=== PATIENT | female | born 1950 | race Caucasian/White ===

== ENCOUNTER → 2017-02-17 13:06 | Outpatient (CLI) | payer MEDICARE, MEDICAID ==
[2015-02-06 10:49] VITALS: BMI 45.1
[~2017-02-17 13:06] MED LIST: BAYER CHEWABLE81 MG PO; CARAFATE1 G PO; CROMOLYN SOD40 MG/ML NS; DYRENIUM50 MG PO; FLOVENT HFA 11012 GM INH; HYDROCODONE-APA1 TAB PO; K-TAB10 MEQ PO; KEFLEX250 MG PO; NASACORT AQ16.5 GM NASAL; PARAFON FORTE500 MG PO; PEPCID40 MG PO; SINGULAIR10 MG PO; TIROSINT88 MCG PO; VALIUM5 MG PO; VENTOLIN HFA18 GM INH
== END | disposition home or self-care (01) ==
LOC: D.RAD 13:06
DX: M54.5 Low back pain (principal); R10.9 Unspecified abdominal pain

== ENCOUNTER → 2017-03-18 15:11 | Outpatient (CLI) | payer MEDICARE, MEDICAID ==
[2015-02-06 10:49] VITALS: BMI 45.1
== END | disposition home or self-care (01) ==
LOC: D.CT 15:11
DX: M41.9 Scoliosis, unspecified (principal)

== ENCOUNTER 2018-02-13 17:38 | Observation (INO) | payer MEDICARE, MEDICAID ==
[~2018-02-13] VITALS: Ht 172.7 cm; Wt 136.1 kg
--- NOTE | ~2018-02-13 | HEMODYNAMI ---
PATIENT:NOEL MAHONEY MEDICAL RECORD: [id number] : 52 LOCATION:[facility] D.2123 [facility]# [id number] ADMISSION DATE: 02/13/18 Generatedon:02/14/201812:38 Patient name: NOEL MAHONEY Patient #: [id number] SSN: : 1950 Date of study: 02/14/2018 Page: Of Hemodynamic Procedure Report Patient Data Patient Demographics Procedure consent was obtained First Name: NOEL Gender: Female Last Name: MARU : 1950 [facility] Initial: J Age: 68 year(s) Patient #: [id number] Race: Unknown Additional ID: [id number] Contact details Address: [address] [place] [address] [facility] State: [place] City: [place] Zip code: [address] Past Medical History Allergies Allergen Reaction Date Comments Reported Sulfa drugs 02/14/2018 Adhesive tape 02/14/2018 Other allergy 02/14/2018 celebrex, crestor dexilant, tamiflu Admission Admission Data Admission Date: 02/13/2018 Admission Time: 17:38 Room #: D.2123 Lab Results Lab Result Date: 02/14/2018 Lab Result Time: 0:00 Biochemistry Name Units Result Min Max BUN mg/dl 16 --(---*)-- 7 18 Creatinine mg/dl 1 --(--*-)-- 0.6 1.3 CBC Name Units Result Min Max Hemoglobin g/dl 13.2 -*(----)-- 13.5 17.5 Procedure Procedure Types Cath Procedure Diagnostic Procedure LHC LHC w/Coronaries Procedure Description Procedure Date Procedure Date: 02/14/2018 Procedure Start Time: 12:29 Procedure End Time: 12:37 Procedure Staff Name Function Ilia Hanson MD Performing Physician Trish Nix RT Monitor Yuliet Nugent RT Scrub Mark Preciado RN Nurse Procedure Data Cath Procedure Fluoroscopy Diagnostic fluoroscopy Total fluoroscopy Time: 1.2 time: 1.2 min min Diagnostic fluoroscopy Total fluoroscopy dose: 531 dose: 531 mGy mGy Contrast Material Contrast Material Type Amount (ml) Isovue 300 36 Entry Location Entry Primary Successful Side Size Upsize Upsize Entry Closure Ramon ccessful Closure Location (Fr) 1 (Fr) 2 (Fr) Remarks Device Remarks Radial Right 6 Fr Mechanical artery Short Compression Estimated blood loss: 5 ml Diagnostic catheters Device Type Used For End Catheter Placement DIAGNOSTIC Benton 110cm 5 LV Angiography Fr catheter ([id number]) DIAGNOSTIC Benton 110cm 5 Left Coronary Fr catheter ([id number]) Angiography DIAGNOSTIC Benton 110cm 5 Right Coronary Fr catheter ([id number]) Angiography Procedure Complications No complications Procedure Medications Medication Administration Route Dosage 0.9% NaCl I.V. 100 ml/hr Oxygen etCO2 Nasal cannula 2 l/min Heparin Flush Bag added to field 2 bags (1000units/500ml NS) Lidocaine 2% added to field 20 Radial Cocktail added to field 1 syringe (Verapomil 2mg/Nitro 400mcg/Heparin 1500units) Versed I.V. 2 mg Fentanyl I.V. 50 mcg Fentanyl I.V. 50 mcg Radial Cocktail I.A. 1 syringe (Verapomil 2mg/Nitro 400mcg/Heparin 1500units) Versed I.V. 0.5 mg Hemodynamics Rest HGB: 13.2 (g/dl) Heart Rate: 66 (bpm) Snapshots Pre Cath Intra NCS Post Cath Vital Signs Time Heart Resp SPO2 etCO2 NIBP (mmHg) Rhythm Pain Sedation Rate (ipm) (%) (mmHg) Status Level (bpm) 12:05:21 62 13 93 35.9 137/72(107) Paced 0 (11) 10(A) , No pain 12:10:07 65 16 92 35.8 134/75(98) Paced 0 (11) 10(A) , No pain 12:14:56 69 16 93 36.6 140/72(94) Paced 0 (11) 10(A) , No pain 12:19:45 67 15 92 40.3 137/71(102) Paced 0 (11) 10(A) , No pain 12:24:32 62 15 94 39.6 135/75(100) Paced 0 (11) 10(A) , No pain 12:29:16 60 14 94 14.9 125/72(101) Paced 0 (11) 10(A) , No pain 12:34:01 69 14 92 36.6 105/54(77) Paced 0 (11) 10(A) , No pain Medications Time Medication Route Dose Verified Delivered Reason Notes Effectiveness by by 12:06:37 0.9% NaCl I.V. 100 Mark Mark Per ml/hr Ozzy Preciado physician RN RN 12:06:50 Oxygen etCO2 2 l/min Mark Mark Per Nasal Ozzy Preciado physician cannula RN RN 12:07:02 Heparin Flush added 2 bags Mark Mark used for Bag to Lorigan Ozzy procedure (1000units/500ml field RN RN NS) 12:07:13 Lidocaine 2% added 20ml Mark Mark for local to vial Lorigan Chikaigan anesthetic field RN RN 12:07:25 Radial Cocktail added 1 Mark Mark used for (Verapomil to syringe Lorigan Cihkaigan procedure 2mg/Nitro field RN RN 400mcg/Heparin 1500units) 12:23:25 Versed I.V. 2 mg Mark Mark for sedation Ozzy Preciado RN RN 12:23:34 Fentanyl I.V. 50 mcg Mark Mark for sedation Ozzy Preciado RN RN 12:29:40 Fentanyl I.V. 50 mcg Mark Mark for sedation Ozzy Preciado RN RN 12:30:18 Radial Cocktail I.A. 1 Mark Ilia for (Verapomil syringe Ozzy Hanson MD vasodilation 2mg/Nitro RN 400mcg/Heparin 1500units) 12:32:23 Versed I.V. 0.5 mg Mark Mark for sedation Ozzy Preciado RN elevator mechanic Log Time Note 11:36:39 Time tracking: Regular hours (M-F 7:00 - 5:00) 11:36:43 Plan of Care:Hemodynamics will remain stable., Cardiac rhythm will remain stable., Comfort level will be maintained., Respiratory function will remain adequate., Patient/ family verbilizes understanding of procedure., Procedure tolerated without complication., Recovers from procedure without complications.. 11:36:47 Signed procedure consent form obtained from patient. 11:37:30 Lab Result : Creatinine 1 mg/dl 11:37:30 Lab Result : BUN 16 mg/dl 11:37:30 Lab Result : Hemoglobin 13.2 g/dl 11:41:09 Trish Counts RT(R) sent for patient. Start room use. 11:55:11 Patient received from PCU to CCL 1 Alert and oriented. Tansferred to table in Supine position. 12:04:20 Warm blankets applied, and mandy hugger turned on for patient comfort. 12:04:21 Correct patient and procedure confirmed by team. 12:04:22 ECG and BP/O2 sat monitors applied to patient. 12:04:23 Vital chart was started 12:04:24 Full Disclosure recording started 12:06:04 Rhythm: sinus rhythm 12:06:37 0.9% NaCl 100 ml/hr I.V. was administered by Mark Preciado RN; Per physician; 12:06:48 H&P Date Dictated: 02/14/2018 Within 30 days and on chart.. 12:06:50 Oxygen 2 l/min etCO2 Nasal cannula was administered by Mark Preciado RN; Per physician; 12:06:50 Pre-procedure instructions explained to patient. 12:06:50 Pre-op teaching completed and patient verbalized understanding. 12:06:52 Family in patients room. 12:06:56 Patient NPO since Midnight. 12:07:02 Heparin Flush Bag (1000units/500ml NS) 2 bags added to field was administered by Mark Preciado RN; used for procedure; 12:07:13 Lidocaine 2% 20ml vial added to field was administered by Mark Preciado RN; for local anesthetic; 12:07:25 Radial Cocktail (Verapomil 2mg/Nitro 400mcg/Heparin 1500units) 1 syringe added to field was administered by Mark Preciado RN; used for procedure; 12:10:12 Patient allergic to Sulfa drugs 12:10:19 Patient allergic to Adhesive tape 12:10:54 Patient allergic to Other allergycelebrex, crestor dexilant, tamiflu 12:10:59 Is the patient allergic to Iodine/contrast media? No. 12:11:00 Is patient on blood thinner?No 12:11:02 Patient diabetic? No. 12:11:07 Previous problem with sedation/anesthesia? No ? 12:11:08 Snore? Yes 12:11:09 Sleep apnea? No 12:11:10 Deviated septum? No 12:11:10 Opens mouth fully? Yes 12:11:11 Sticks out tongue? Yes 12:11:14 Airway obstruction? No ? 12:11:16 Dentures? No ? 12:11:19 Pre procedure: right dorsailis pedis pulse 2+ Normal; easily identifiable; not easily obliterated 12:11:22 Modified Parmjit's test Ulnar < 7 seconds 12:11:24 Patient pain scale 0/10 ?. 12:11:31 IV patent on arrival in right forearm with 0.9% NaCl at [facility]. 12:11:33 Lab results completed and on chart. 12:11:35 Right Radial & Right Groin area was prepped with chlora-prep and draped in sterile fashion 12:11:36 Alarms reviewed by R. N. 12:11:37 Sharps counted by scrub and verified by R.N. 12:11:39 Use device set Radial Dx or PCI 12:11:40 ACIST Syringe (55816) opened to sterile field. 12:11:41 Medline Cath Pack ([id number]) opened to sterile field. 12:11:41 Bag Decanter (2002S) opened to sterile field. 12:11:42 DIAGNOSTIC WIRE .035 260cm J wire (929329) opened to sterile field. 12:11:42 ACIST Hand Control (92278) opened to sterile field. 12:11:43 ACIST Manifold (03937) opened to sterile field. 12:11:43 Tegaderm 4 x 4 (1626W) opened to sterile field. 12:11:45 MBrace Wrist Support ([id number]) opened to sterile field. 12:11:53 SHEATH 6Fr Prelude Radial ([id number]) opened to sterile field. 12:16:42 Baseline sample Acquired. 12:16:44 Zero performed for pressure channel P1 12:20:50 Final Timeout: patient, procedure, and site verified with staff and physician. All members of the team are in agreement. 12:20:59 Right Radial site verified by team. 12:21:04 Physical assessment completed. ASA score P 2 - A patient with mild systemic disease as per Ilia Hanson MD. 12:21:09 Sedation plan: IV Moderate Sedation Medication:Versed, Fentanyl 12:23:25 Versed 2 mg I.V. was administered by Mark Preciado RN; for sedation; 12:23:34 Fentanyl 50 mcg I.V. was administered by Mark Preciado RN; for sedation; ::34 Procedure started. 12::38 Local anesthetic to right femoral artery with Lidocaine 2% by Ilia Hanson MD.INITIAL ACCESS ONLY 12::40 Fentanyl 50 mcg I.V. was administered by Mark Preciado RN; for sedation; 12::52 A 6 Fr Short sheath was inserted into the Right Radial artery 12::18 Radial Cocktail (Verapomil 2mg/Nitro 400mcg/Heparin 1500units) 1 syringe I.A. was administered by Ilia Hanson MD; for vasodilation; 12::30 A DIAGNOSTIC Benton 110cm 5 Fr catheter ([id number]) was advanced over the wire and used for LV Angiography. 12:32: LV gram done using MCKAY 12::04 Injector settings: Ml/sec: 5, Volume: 15, 12:32:10 EF : 60 % 12:: Versed 0.5 mg I.V. was administered by Mark Preciado RN; for sedation; :: A DIAGNOSTIC Benton 110cm 5 Fr catheter ([id number]) was advanced over the wire and used for Left Coronary Angiography. 12:33:29 A DIAGNOSTIC Benton 110cm 5 Fr catheter (118707) was advanced over the wire and used for Right Coronary Angiography. 12:33:34 Catheter removed. 12:33:51 Sheath removed intact; hemostasis achieved with Mechanical Compression to the Right Radial artery. 12:33:54 Procedure ended.(Physican Out) 12:34:05 Fluoroscopy time 01.20 minutes. 12::09 Fluoroscopy dose: 531 mGy 12:34: Flurop Dose total: 531 12:34:12 Contrast amount:Isovue 300 36ml. 12:34:13 Sharps counted by scrub and verified by R.N. 12:34:16 TR band inflated with 12cc of air. 12:34:17 Insertion/operative site no bleeding no hematoma. 12:34:23 Post right radial artery:stable, clean and dry 12:34:25 Post Procedure Pulses reassessed and unchanged 12:: Post-procedure physical assessment completed. ASA score P 2 - A patient with mild systemic disease as per Ilia Hanson MD. 12:34:29 Post procedure rhythm: unchanged. 12:34:31 Estimated blood loss: 5 ml 12:34:33 Post procedure instruction explained to patient.Patient verbalizes understanding. 12:34:33 Patient needs reinforcement of post procedure teaching. 12:34:39 Procedure Complication : No complications 12:34:42 See physician's report for complete and final results. 12:34:45 TR BAND Standard ([id number]) opened to sterile field. 12:35:18 Procedure and supply charges have been captured, reviewed, submitted and are correct. 12:36:41 Vital chart was stopped 12:36:43 Report given to PCU. 12:36:50 Patient transfered to PCU with Bed. 12:37:03 Procedure ended. 12:37:03 Full Disclosure recording stopped 12:37:06 End room use (Document Last) Device Usage Item Name Manufacture Quantity Catalog Number Hospital Part Current M inimal Lot# / Charge Number Stock Stock Serial# Code ACIST Syringe Acist 1 85213 501994 [id number] 342128 2 0 (84133) Medical Systems Inc Medline Cath Cardinal 1 [id number] 04468 128021 5 [place]om[place] ([id number]) Bag Decanter Microtek 1 2001S 999101 88289 336173 5 (2001S) Medical Inc. DIAGNOSTIC WIRE St Marcio 1 860504 756329 875891 321941 3 0 .035 260cm J wire (054691) ACIST Hand Acist 1 58259 695640 044012 565740 5 Control (00491) Medical Systems Inc ACIST Manifold Acist 1 87350 281403 394374 788717 5 (29719) Medical Systems Inc Tegaderm 4 x 4 3M 1 1626W 115749 238791 985374 5 (1626W) MBrace Wrist Advanced 1 140-0250-00 760350 20624 169781 5 Support Vascular ([id number]) Dynamics SHEATH 6Fr Merit 1 [id number] 743937 757025 883708 5 Prelude Radial Medical ([id number]) DIAGNOSTIC Terumo 1 40-1165 624294 478999 488810 5 Benton 110cm 5 Fr catheter (588509) TR BAND Terumo 1 [id number] 797929 575603 770344 4 0 Standard ([id number]) Signature Audit [place] Stage Time Signature Unsigned Intra-Procedure 02/14/2018 Trish 12:38:40 PM Counts RT(R) Signatures Monitor : Trish Signature : Counts RT Date : Time : [address] [place] [address]
--- NOTE | ~2018-02-13 | OP ---
PATIENT NAME: NOEL MAHONEY MEDICAL RECORD: [id number] :52 LOCATION:D.M2 D.2123 ADMISSION DATE:02/13/18 SURGEON: KEENA VASQUEZ MD DATE OF OPERATION: 02/14/2018 PROCEDURES: 1. Left heart catheterization. 2. Selective coronary angiography. 3. Left ventriculogram. PROCEDURE IN DETAIL: After informed consent was obtained and after detailed explanation of risks, benefits as well as alternative therapies, the patient elected to proceed with angiogram and heart catheterization. The right radial area was prepped and draped in normal sterile fashion. Right radial artery was cannulated via modified technique with placement of 5-Mohawk sheath. All catheters exchanged through this sheath. FINDINGS: Left ventriculogram was performed in standard 30-degree MCKAY view, reveals good cardiac wall motion throughout all segments. Overall ejection fraction estimated 60%. SELECTIVE CORONARY ANGIOGRAPHY: Left main, left anterior descending, left circumflex, right coronary artery are all smooth-walled vessels with no angiographic evidence of coronary artery disease. OVERALL IMPRESSION: 1. No angiographic evidence of coronary artery disease. 2. Normal left heart pressures. 3. Normal left ventricular systolic function. Chest pain is noncardiac in etiology. No further cardiac workup needs to be ascertained. TRANSINT:[id number] Voice Confirmation ID: [id number] DOCUMENT ID: [id number] KEENA VASQUEZ MD at 0956 CC: IRA JULIAN [id number] DICTATION DATE: 02/14/18 1237 [place] [employer]ER: 02/14/18 1458 DIS IN 02/15/18 [place] [address] [place] [address]
--- NOTE | ~2018-02-13 | HP ---
PATIENT: NOEL MAHONEY MEDICAL RECORD: [id number] ACCOUNT: [id number] LOCATION:[address] : 52 ADMISSION DATE: 02/13/18 HISTORY AND PHYSICAL EXAMINATION REASON FOR ADMISSION: Cough, fever and substernal chest pain. HISTORY OF PRESENT ILLNESS: The patient is a 68-year-old female with previous history of sick sinus syndrome, post pacemaker placement in 2014 with paroxysmal atrial fibrillation. She had seen Dr. Kim in cardiology in his office last week with pacer showing 25% of battery life consumed and no evidence of recent atrial fibrillation. The patient states that she has significant episode of reflux 2 nights ago and then began to cough fairly bad last night, she thinks she had fever, but did not check it. Cough has been throughout the day today, she began having substernal chest pain that was squeezing, not related to deep breathing. It has been consistent throughout the day, did not radiate. She said she "felt disjointed." She came to the office and appeared ill. Initial exam showed a sat 97% on room air and faint wheezes on chest exam. Chest x-ray did not show an infiltrate; however, due to her chest pain, an EKG was obtained. It showed new changes from her EKG in 2014 prior to pacemaker placement that may be pacer related with wide QRS throughout all leads and question of anterior PA. Because of the patient's symptoms and no improvement on updrafts, she is admitted to observation for serial enzymes and further workup. PAST MEDICAL HISTORY: Carpal tunnel syndrome, depression, dyslipidemia, essential hypertension, history of cholecystitis post-cholecystectomy, GERD, obesity, hypothyroidism, lumbar disc disease, cervical disc disease, menopause, morbid obesity, history of rotator cuff tear, stomach ulcers, history of asthma, osteoarthritis, urinary incontinence, history of Mobitz II heart block post pacemaker placement in 2015 after foot surgery. PAST SURGICAL HISTORY: Cholecystectomy laparoscopically, hysterectomy for uterine cancer, oophorectomy, bilateral knee arthroscopy, right plantar fasciotomy in 03/14, right shoulder repair. She had a panniculectomy and umbilical hernia repair at [facility] on 08/23/2017 without complication. Pacemaker placement, ganglion cyst, carpal tunnel release, colon polyps removed by colonoscopy in 2006, history of negative cardiac catheterization in 04/12, negative stress test in 03/14. ALLERGIES: CELEBREX, CRESTOR, DEXILANT, PRAVASTATIN. FAMILY HISTORY: Father at 78 of PA, had hypertension and diabetes. Mother at 88. She had Parkinson's and dementia. SOCIAL HISTORY: Nonsmoker, remote heavy drinker. She is . HOME MEDICATIONS: Flovent 110 mcg 1 puff b.i.d., Maxalt 10 mg with evening meal, aspirin 81 mg daily, chlorzoxazone 500 mg p.o. at bedtime, diazepam 5 mg p.o. p.r.n. anxiety, famotidine 40 mg at bedtime, gabapentin 300 mg 1 cap at bedtime, Krill oil 1200 mg p.o. at night, Livalo 2 mg with evening meal, Synthroid 0.088 mg p.o. 30 minutes a.c. breakfast, Dyazide 1 q.a.m., tramadol 50 mg q.6 hours p.r.n. low back pain, potassium 99 mg p.o. daily, vitamin E 200 units p.o. daily, omega 3 fish oil 1 daily, flaxseed oil 1000 mg capsule daily, vitamin D 1000 units p.o. daily, Biotin 5000 mg p.o. daily, oxycodone 10 mg q.6 HISTORY AND PHYSICAL [id number] NOEL MAHONEY for severe pain not used since 2017. OTHER ALLERGIES: POISON LOUISE EXTRACT, PREVNAR 13, HOUSE DUST MITE AND RAGWEED POLLEN. REVIEW OF SYSTEMS: GENERAL: She felt pretty well until yesterday. She has not been very fatigued and disjointed today. She had fever last night, she states. RESPIRATORY: She has had cough productive of white sputum and substernal chest pain that was squeezing for the last 12 hours. Mild shortness of breath on exertion. CARDIAC: Chest pain as mentioned above. No recent exertional pain or edema. GASTROINTESTINAL: No nausea, vomiting, change in stools or blood per rectum. GENITOURINARY: No incontinence. GYNECOLOGIC: No vaginal bleeding. ENDOCRINE: Denies polyuria, polydipsia and heat or cold intolerance. NEUROLOGIC: No history of stroke or TIA. No recent vascular headaches. PSYCHIATRIC: Admits to chronically depressed mood, but not suicidal. INTEGUMENT: No recent rash. PHYSICAL EXAMINATION: VITAL SIGNS: On exam, weight is 301 pounds, blood pressure 130/80, heart rate is 70 and regular, respirations are 18, sats 97% on room air. Height is 5 feet, BMI 58.9. GENERAL: The patient appears ill. HEENT: Normocephalic. Eyes are clear. Pharynx is unremarkable. NECK: Supple. CHEST: Distant breath sounds with faint wheezes in the upper lobes. No rales or retractions. Chest wall is nontender. HEART: Regular rate and rhythm. She has healed left upper chest pacemaker site noted, well healed. ABDOMEN: Morbidly obese with healed panniculectomy scar. EXTREMITIES: 2+ mild pedal and pretibial edema of the knees bilaterally. NEUROLOGIC: Oriented to person, place, and time. Cranial nerves are intact. Gait is normal. LABORATORY DATA: Her EKG is abnormal post-pacemaker placement with wide QRS throughout all leads, question of anterior PA. No old EKG to compare. Compared to her pre pacemaker placement EKG, this was grossly abnormal. Labs are currently pending. Chest x-ray in the office is unremarkable except for pacemaker in the left upper chest. The patient was given a pulmonary updraft without improvement in symptoms. The patient was given aspirin 325 mg p.o. stat. ASSESSMENT: 1. Atypical substernal chest pain. History of negative cardiac catheterization in 2012, negative stress test in 2014, history of sick sinus syndrome post pacemaker placement. 2. History of subjective febrile illness with cough, possible aspiration pneumonitis. 3. Obesity. 4. Hyperlipidemia. 5. Hypertension. PLAN: The patient will be admitted to the cardiac floor on cardiac monitoring. HISTORY AND PHYSICAL [id number] NOEL MAHONEY We will check stat cardiac enzymes if elevated then cardiology consult will be obtained. Otherwise, treat with IV Levaquin updrafts. Further workup pending clinical course. TRANSINT:[id number] Voice Confirmation ID: [id number] DOCUMENT ID: [id number] IRA JULIAN MD at 0937 CC: [id number] DICTATION DATE: 02/13/181735 [place] P[facility]ER: 02/13/18 1847 DIS IN 02/15/18 [facility] [address] [place] [address]
[2018-02-13 19:00] VITALS: BP 164/79
[2018-02-13 23:58] LABS: HEMATOCRIT 39.4 % (36.0-48.0); HEMOGLOBIN 13.5 g/dL (12-16); LYMPHOCYTES 48.6 % (15-50); MCH 32.4 pg (26.0-34.0); MCHC 34.3 g/dL (31.0-37.0); MCV 94.5 fL (80.0-100.0); MEAN PLATELET VOLUME 9.3 fL (7.4-10.4); NEUTROPHILS 38.3 % (40-80); PLATELET COUNT 178 10x3/uL (130-400); RBC 4.17 10x6/uL (4.00-5.40); RDW 13.4 % (11.5-14.5); WBC 3.6 10x3/uL (4.8-10.8)
[2018-02-14] VITALS (7 sets, daily range): BP systolic 126–164; BP diastolic 62–79; Ht 172.7 cm; Wt 136.1 kg
[2018-02-14 00:31] LABS: CALC OSMOLALITY 282 mosm/kg (275-300); CALCIUM 8.7 mg/dL (8.5-10.1); CHLORIDE - SERUM 103 mmol/L (98-107); CKMB 0.5 U/L (0.0-3.6); CREATINE KINASE 81 UL (21-215); GLUCOSE 120 mg/dL (74-106); POTASSIUM - SERUM 3.3 mmol/L (3.5-5.1); SODIUM 141 mmol/L (136-145); TROPONIN-I < 0.017 ng/mL (0.000-0.060); UREA NITROGEN 14 mg/dL (7-18); eGFR NON AFRICAN AMERICAN 58 mL/min (90-120)
[2018-02-14 05:18] LABS: BASOPHILS 0.3 % (0-2); EOSINOPHILS 2.4 % (0-7); HEMATOCRIT 39.3 % (36.0-48.0); HEMOGLOBIN 13.2 g/dL (12-16); IMMATURE GRANULOCYTES 0.3 % (0-5); LYMPHOCYTES 40.1 % (15-50); MCH 32.6 pg (26.0-34.0); MCHC 33.6 g/dL (31.0-37.0); MEAN PLATELET VOLUME 9.9 fL (7.4-10.4); MONOCYTES 13.6 % (2-11); NEUTROPHILS 43.3 % (40-80); PLATELET COUNT 178 10x3/uL (130-400); RBC 4.05 10x6/uL (4.00-5.40); RDW 13.6 % (11.5-14.5); WBC 3.7 10x3/uL (4.8-10.8)
[2018-02-14 05:54] LABS: CALC OSMOLALITY 278 mosm/kg (275-300); CALCIUM 8.8 mg/dL (8.5-10.1); CARBON DIOXIDE 24.8 mmol/L (21.0-32.0); CHLORIDE - SERUM 105 mmol/L (98-107); CKMB 0.8 U/L (0.0-3.6); CREATINE KINASE 91 UL (21-215); GLUCOSE 104 mg/dL (74-106); POTASSIUM - SERUM 3.5 mmol/L (3.5-5.1); SODIUM 139 mmol/L (136-145); TROPONIN-I < 0.017 ng/mL (0.000-0.060); UREA NITROGEN 16 mg/dL (7-18); eGFR NON AFRICAN AMERICAN 58 mL/min (90-120)
[2018-02-15] VITALS: BP 134/69
[2018-02-15 01:56] LABS: APPEARANCE CLEAR (CLEAR); BILIRUBIN NEGATIVE (NEGATIVE); COLOR YELLOW (YELLOW); GLUCOSE NEGATIVE (NEGATIVE); KETONE NEGATIVE (NEGATIVE); NITRITE NEGATIVE (NEGATIVE); PROTEIN NEGATIVE (NEGATIVE); SPECIFIC GRAVITY 1.015 (1.005-1.020); UROBILINOGEN NORMAL (NORMAL)
[2018-02-15 01:57] LABS: BACTERIA FEW /hpf (NONE SEEN); EPITHELIAL CELLS 0-5 /hpf (0-5); RED CELLS - URINE NONE SEEN /hpf (0-5); WHITE CELLS - URINE 0-5 /hpf (0-5); YEAST <1+ /hpf (NONE SEEN)
[2018-02-15 04:00] VITALS: BP 126/59
[2018-02-15] MEDS ORDERED: LEVAQUIN500 MG PO (07:14)
[2018-02-15] MEDS ORDERED: MEDROL DOSE PACK4 MG PO (07:15)
[2018-02-15] MEDS ORDERED: MUCINEX600 MG PO (07:15)
[2018-02-15 08:29] VITALS: BP 140/68
== END 2018-02-15 12:24 | disposition home or self-care (01) ==
LOC: D.M2 17:38 → D.SDCHOLD 17:38 → OBSVTIME 17:39 → D.M2 19:08 → D.SDCHOLD 02-14 15:15 → D.M2 02-14 15:15
PROVIDERS: Family Medicine
DX: J45.901 Unspecified asthma with (acute) exacerbation (principal); Z87.891 Personal history of nicotine dependence; F32.9 Major depressive disorder, single episode, unspecified; E78.5 Hyperlipidemia, unspecified; I10 Essential (primary) hypertension; K21.9 Gastro-esophageal reflux disease without esophagitis; E66.01 Morbid (severe) obesity due to excess calories; Z68.43 Body mass index [BMI] 50.0-59.9, adult; Z95.0 Presence of cardiac pacemaker; E87.6 Hypokalemia

== ENCOUNTER → 2018-04-17 16:57 | Outpatient (CLI) | payer MEDICARE, MEDICAID ==
[2018-02-14 13:15] VITALS: BMI 45.6
[~2018-04-17 16:57] MED LIST changes: +LEVAQUIN500 MG PO; +MEDROL DOSE PACK4 MG PO; +MUCINEX600 MG PO
== END | disposition home or self-care (01) ==
LOC: D.RAD 16:57
DX: M25.552 Pain in left hip (principal); M70.72 Other bursitis of hip, left hip; Y93.9 Activity, unspecified

== ENCOUNTER 2019-04-16 09:38 | Day surgery (SDC) | payer MEDICARE, MEDICAID ==
[~2019-04-16] VITALS: Ht 172.7 cm; Wt 136.4 kg
[2019-04-16 10:04] LABS: HEMATOCRIT 39.6 % (36.0-48.0); HEMOGLOBIN 13.4 g/dL (12-16); MCH 32.9 pg (26.0-34.0); MCHC 33.8 g/dL (31.0-37.0); MCV 97.3 fL (80.0-100.0); MEAN PLATELET VOLUME 9.6 fL (7.4-10.4); RBC 4.07 10x6/uL (4.00-5.40); RDW 13.8 % (11.5-14.5); WBC 4.4 10x3/uL (4.8-10.8)
[2019-04-16] MEDS ORDERED: LASIX (10:27)
[2019-04-16] MEDS ORDERED: BLOOD PRESSURE (10:28)
[2019-04-16] MEDS ORDERED: LIVALO2 MG PO (10:30)
[2019-04-16 10:45] VITALS: BP 142/70; Ht 172.7 cm; Wt 136.4 kg
--- NOTE | 2019-04-16 14:05 | NUR ---
1335 IV DC'D. CATHETER INTACT. PRESSURE HELD UNTIL BLEEDING STOPPED. BANDAID APPLIED.
--- NOTE | 2019-04-17 18:01 | OP ---
PATIENT NAME: NOEL MAHONEY MEDICAL RECORD: [id number] :52 LOCATION:[facility] ADMISSION DATE: SURGEON: RODNEY SALES DO DATE OF OPERATION: 04/16/2019 PROCEDURE: EGD with biopsies. INDICATIONS FOR PROCEDURE: Heartburn. SCOPE: Olympus video gastroscope. MEDICATIONS: Propofol 350 mg IV per anesthesia. ESTIMATED BLOOD LOSS: Minimal. COMPLICATIONS: None. FINDINGS: Informed consent was given. The patient was made comfortable with the above medication. After reaching an adequate level of sedation by slow IV push, the patient was placed on her left side. The endoscope was advanced under direct visualization through the mouth to the second portion of the duodenum. The entire esophagus appeared normal. At the GE junction, there was evidence of LA class A reflux-induced esophagitis. The endoscope was advanced beyond the GE junction into the stomach and retroflexed to view the cardia, where a small sliding hiatal hernia was present. Throughout the entire stomach, there were areas of erythema and granularity and some erosions present, but no ulcerations or evidence of bleeding. Random cold forceps biopsies were taken to submit for histopathology and to rule out the presence of H. pylori. The endoscope was advanced beyond the pylorus into the duodenum, which appeared normal down to the second portion. The endoscope was then withdrawn from the patient. The patient tolerated the procedure well and there were no complications. IMPRESSION: 1. LA class A reflux-induced esophagitis. 2. Small sliding hiatal hernia. 3. Gastritis. PLAN AND RECOMMENDATIONS: 1. Discharge home when recovery parameters are met. 2. Follow up biopsy specimen results. 3. GERD diet and reflux precautions. 4. Continue current medications. 5. Notify GI clinic if symptoms worsen or fail to improve. 6. The patient would like to discuss with surgery any potential weight loss surgical options available. We will consider referral at followup visit. TRANSINT:[id number] Voice Confirmation ID: [id number] DOCUMENT ID: [id number] OPERATIVE REPORT [id number] NOEL MAHONEY RODNEY SALES DO at 1808 CC: [id number] DICTATION DATE: 04/16/19 1248 SERVICE ORDER DISPATCHER CHIEF: 04/16/19 1304 [facility] 04/16/[address] [address]
== END 2019-04-16 14:18 | disposition home or self-care (01) ==
LOC: D.OPS 09:38
PROVIDERS: Anesthesiology; ATTEND Internal Medicine Gastroenterology
DX: R12 Heartburn (principal); Z01.812 Encounter for preprocedural laboratory examination; K21.0 Gastro-esophageal reflux disease with esophagitis; K44.9 Diaphragmatic hernia without obstruction or gangrene; K29.70 Gastritis, unspecified, without bleeding

== ENCOUNTER → 2020-01-08 12:58 | Outpatient (CLI) | payer MEDICARE, MEDICAID ==
[2019-04-16 10:45] VITALS: BMI 45.7
[~2020-01-08 12:58] MED LIST changes: +BLOOD PRESSURE; +LASIX; +LIVALO2 MG PO
== END | disposition home or self-care (01) ==
LOC: D.HCCECHO 12:58
PROVIDERS: ATTEND Internal Medicine Cardiovascular Disease
DX: I10 Essential (primary) hypertension (principal)

== ENCOUNTER → 2020-02-04 10:23 | Outpatient (CLI) | payer MEDICARE, MEDICAID ==
[2019-04-16 10:45] VITALS: BMI 45.7
== END | disposition home or self-care (01) ==
LOC: D.CT 10:23
PROVIDERS: ATTEND Family Medicine
DX: R10.9 Unspecified abdominal pain (principal)

== ENCOUNTER → 2020-03-06 07:31 | Outpatient (CLI) | payer MEDICARE, MEDICAID ==
[2019-04-16 10:45] VITALS: BMI 45.7
== END | disposition home or self-care (01) ==
LOC: D.US 07:31
PROVIDERS: ATTEND Family Medicine
DX: D73.89 Other diseases of spleen (principal)